=== PATIENT | female | born 1950 ===

== ENCOUNTER 2021-03-04 05:55 | Day surgery (SDC) | payer OTHER ==
[~2021-03-04 05:55] MED LIST: COZAAR25 MG PO; METFORMIN HCL500 M3 PO; PEPCID AC20 MG PO; TRAZODONE HCL100 MG PO
[2021-03-04] MEDS ORDERED: RECTICARE30 GM TOP (08:46)
[2021-03-04] MEDS ORDERED: PERCOCET 5-3251 EACH PO (08:46)
== END 2021-03-04 13:00 | disposition home or self-care (01) ==
LOC: CIR.AMB 05:55
PROVIDERS: ATTEND Surgery
DX: K64.4 Residual hemorrhoidal skin tags (principal); K64.8 Other hemorrhoids; Z20.822 Contact with and (suspected) exposure to COVID-19